=== PATIENT | female | born 1965 | race Caucasian/White ===

== ENCOUNTER → 2025-09-03 07:49 | Outpatient (REF) | payer OTHER, SELFPAY | LOC: HWRAD 07:49 | PROVIDERS: ATTENDING PHYSICIAN Family Medicine | DX: K75.81 Nonalcoholic steatohepatitis (NASH) (principal); E78.5 Hyperlipidemia, unspecified; M35.00 Sjogren syndrome, unspecified; N95.1 Menopausal and female climacteric states; N95.8 Other specified menopausal and perimenopausal disorders; E06.3 Autoimmune thyroiditis | CPT/HCPCS: 76700 ==